=== PATIENT | female | born 1985 | race Caucasian/White ===

== ENCOUNTER 2020-02-03 10:44 | Emergency (ER) | payer OTHER, SELFPAY ==
[2020-02-03 10:54] VITALS: BP 148/90; PULSE 112; RESP 18; TEMP 36.9; O2SAT 98; BMI 27.8
--- NOTE | 2020-02-03 11:18 | ED_ITS ---
HPI - Chest Pain General Chief Complaint: Chest Pain Stated Complaint: MULTIPLE COMPLAINTS Time Seen by Provider: 02/03/20 11:18 Source: patient Mode of arrival: ambulatory Limitations: no limitations History of Present Illness MD complaint: chest pain and other (elevated heart rate and left arm tingling) Pertinent past history: other (hyperthyroidism) Onset (ago): day(s) (2) Timing of current episode: constant Onset: during rest Pain location: right chest Pain radiation: left arm Severity: moderate Quality: aching Relieving factors: nothing Exacerbating factors: nothing Context: other (hx of hyperthyroidism but not on medications yet) Associated symptoms: dyspnea and palpitations Treatment prior to arrival: none Risk Factors Coronary artery disease risk factors: none Thoracic aortic dissection risk factors: none Related Data Previous Rx's Medication Instructions Recorded propranolol 10 mg PO BID #30 tab 02/03/20 Allergies Allergy/AdvReac Type Severity Reaction Status Date / Time No Known Allergies Allergy Unverified 01/07/20 15:22 Review of Systems Review of Systems: Constitutional : No Weight loss, No Fever, No Chills ENT/Mouth : No sore throat, No Rhinorrhea Eyes: No Eye Pain, No Swelling Cardiovascular : pos Chest Pain, pos SOB, no Dyspnea on Exertion, No Orthopnea, No Edema, pos Palpitations Respiratory : No Cough, No Sputum Gastrointestinal : noNausea, No Vomiting, No Diarrhea, No abdominal Pain, No Hematochezia, No Melena Genitourinary : No Dysuria, No Urinary Frequency Musculoskeletal : No joint pain, No Myalgias, No Joint Swelling Skin : No Skin Lesions, No rash Neuro : No Weakness, pos tingling LUE, No Dizziness, No Headache Psych : No Anxiety/Panic, No Depression Heme/Lymph: No Bruising, No Lymphadenopathy Endocrine : No Polyuria, No Polydipsia All other systems reviewed and are negative PMFSH Past Medical History Medical History Hyperthyroidism IUD (intrauterine device) in place Social History Social History (Updated 02/03/20 @ 11:26 by Barb Alcantar DO) Alcohol intake: never Smoking Status: Never smoker Smoked in Last 30 Days: No Use of substances other than those prescribed or required for medical reasons: No Advance Directives: No Advance Directives Information Provided: Yes Physical Exam Vital Signs: Vital Signs: Vital Signs Temp Pulse Resp BP Pulse Ox 02/03/20 10:54 98.4 F 112 H 18 148/90 H 98 Body Mass Index 27.8 Appearance: Alert. Oriented X3. No acute distress. Eyes: Pupils equal, round and reactive to light. ENT: Pharynx normal. Neck: Normal inspection. Neck supple. CVS: tachycardic. Pulses normal. Respiratory: No respiratory distress. Breath sounds normal. Abdomen: Soft and nontender. Skin: Skin warm and dry. Normal skin color. Normal skin turgor. Extremities: No lower extremity edema. No calf ttp Neuro: Oriented X 3. No motor deficit. No sensory deficit. 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 throughout pulses intact and symmetric, sensation intact symmetrically to light touch and sharp touch Course Course Course Narrative: negative workup stable for DC at this time, symmetric BPs can be DC to PCP MDM - Chest Pain MDM Narrative Medical decision making narrative: 35 yo female with hyperthyroidism but not on medications yet has scan on Saturday here with elevated HR R sided CP and L arm tingling, no significant ACS risk factors, labs, EKG, troponin x 1, thyroid studies, ddimer dispo per results and findings, possible start of propanolol for symptoms, doubt stroke as her L arm there is 5/5 strength throughout her sensation is intact throughout without any deficits - it is subjective in bong ure. Lab Data Result diagrams: 02/03/20 13:11 02/03/20 13:11 Labs: Lab Results 02/03/20 02/03/20 02/03/20 Range/Units 13:11 13:11 13:11 WBC 13.0 H (4.8-10.8) X10*3/uL RBC 4.94 (4.20-5.50) X10*6/uL Hgb 14.2 (12.0-16.0) g/dl Hct 42.5 (37-47) % MCV 86.0 (80-98) fL MCH 28.7 (27.0-33.0) pg MCHC 33.4 (31.0-35.0) g/dl RDW 12.3 (11.0-16.0) % Plt Count 284 (160-400) X10*3/uL MPV 10.6 (9.4-12.3) fL Immature Gran % (Auto) 0.5 H (0.0-0.4) % Neut % (Auto) 68.6 (45-73) % Lymph % (Auto) 23.8 (20-40) % [place] % (Auto) 5.6 (2-11) % Eos % (Auto) 0.8 (0-4) % Baso % (Auto) 0.7 (0-2) % Lymph # (Auto) 3.1 (1.2-4.9) X10*3/uL [place] # (Auto) 0.7 (0.1-1.2) X10*3/uL Eos # (Auto) 0.1 (0.0-0.4) X10*3/uL Baso # (Auto) 0.1 (0.0-0.2) X10*3/uL Abs Immat Gran (auto) 0.06 H (0.00-0.03) X10*3/uL Absolute Neuts (auto) 8.9 H (2.0-8.3) X10*3/uL Absolute Nucleated RBC 0.000 (0.0-0.012) X10*3/uL Nucleated RBC % (auto) 0.0 (0.0-0.2) /100WBC D-Dimer NG/ML Sodium 139 (135-145) mmol/L Potassium 4.1 (3.3-5.1) mmol/l Chloride 104 (96-108) mmol/L Carbon Dioxide 27 (22-29) mmol/L Anion Gap 12 (12-20) BUN 13 (9-16) mg/dL Creatinine 0.72 (0.5-1.4) mg/dL Estim Creat Clear Calc 105.1 Estimated GFR > 60 Random Glucose 81 (60-115) mg/dL Calcium 9.3 (8.4-10.2) mg/dL Magnesium 1.8 (1.6-2.6) mg/dL Total Bilirubin 0.8 (0.0-1.0) mg/dL Direct Bilirubin 0.3 (0.0-0.5) mg/dL AST 17 (5-31) U/L ALT 22 (0-31) U/L Alkaline Phosphatase 66 (39-117) U/L Troponin I High Sens (<3.5-17.0) ng/L Total Protein 7.6 (6.5-8.0) g/dL Albumin 4.9 (3.5-5.0) g/dL TSH 0.24 L (0.32-4.0) mIU/mL Free T4 (0.71-1.85) ng/dL Urine Color Urine Appearance Urine pH (5.0-8.0) Ur Specific [place] (1.005-1.025) Urine Protein (NEG-TRACE) MG/DL Urine Glucose (UA) (NEG) MG/DL Urine Ketones (NEG) MG/DL Urine Blood (NEG) Urine Nitrite (NEG) Ur Leukocyte Esterase (NEG) Urine RBC (0) /HPF Urine WBC (0-4) /HPF Ur Squamous Epith Cells /LPF Urine Bacteria /LPF 02/03/20 02/03/20 02/03/20 Range/Units 13:11 13:11 13:12 WBC (4.8-10.8) X10*3/uL RBC (4.20-5.50) X10*6/uL Hgb (12.0-16.0) g/dl Hct (37-47) % MCV (80-98) fL MCH (27.0-33.0) pg MCHC (31.0-35.0) g/dl RDW (11.0-16.0) % Plt Count (160-400) X10*3/uL MPV (9.4-12.3) fL Immature Gran % (Auto) (0.0-0.4) % Neut % (Auto) (45-73) % Lymph % (Auto) (20-40) % [place] % (Auto) (2-11) % Eos % (Auto) (0-4) % Baso % (Auto) (0-2) % Lymph # (Auto) (1.2-4.9) X10*3/uL [place] # (Auto) (0.1-1.2) X10*3/uL Eos # (Auto) (0.0-0.4) X10*3/uL Baso # (Auto) (0.0-0.2) X10*3/uL Abs Immat Gran (auto) (0.00-0.03) X10*3/uL Absolute Neuts (auto) (2.0-8.3) X10*3/uL Absolute Nucleated RBC (0.0-0.012) X10*3/uL Nucleated RBC % (auto) (0.0-0.2) /100WBC D-Dimer < 200 NG/ML Sodium (135-145) mmol/L Potassium (3.3-5.1) mmol/l Chloride (96-108) mmol/L Carbon Dioxide (22-29) mmol/L Anion Gap (12-20) BUN (9-16) mg/dL Creatinine (0.5-1.4) mg/dL Estim Creat Clear Calc Estimated GFR Random Glucose (60-115) mg/dL Calcium (8.4-10.2) mg/dL Magnesium (1.6-2.6) mg/dL Total Bilirubin (0.0-1.0) mg/dL Direct Bilirubin (0.0-0.5) mg/dL AST (5-31) U/L ALT (0-31) U/L Alkaline Phosphatase (39-117) U/L Troponin I High Sens < 3.5 (<3.5-17.0) ng/L Total Protein (6.5-8.0) g/dL Albumin (3.5-5.0) g/dL TSH (0.32-4.0) mIU/mL Free T4 1.17 (0.71-1.85) ng/dL Urine Color Urine Appearance Urine pH (5.0-8.0) Ur Specific [place] (1.005-1.025) Urine Protein (NEG-TRACE) MG/DL Urine Glucose (UA) (NEG) MG/DL Urine Ketones (NEG) MG/DL Urine Blood (NEG) Urine Nitrite (NEG) Ur Leukocyte Esterase (NEG) Urine RBC (0) /HPF Urine WBC (0-4) /HPF Ur Squamous Epith Cells /LPF Urine Bacteria /LPF 02/03/20 Range/Units 13:12 WBC (4.8-10.8) X10*3/uL RBC (4.20-5.50) X10*6/uL Hgb (12.0-16.0) g/dl Hct (37-47) % MCV (80-98) fL MCH (27.0-33.0) pg MCHC (31.0-35.0) g/dl RDW (11.0-16.0) % Plt Count (160-400) X10*3/uL MPV (9.4-12.3) fL Immature Gran % (Auto) (0.0-0.4) % Neut % (Auto) (45-73) % Lymph % (Auto) (20-40) % [place] % (Auto) (2-11) % Eos % (Auto) (0-4) % Baso % (Auto) (0-2) % Lymph # (Auto) (1.2-4.9) X10*3/uL [place] # (Auto) (0.1-1.2) X10*3/uL Eos # (Auto) (0.0-0.4) X10*3/uL Baso # (Auto) (0.0-0.2) X10*3/uL Abs Immat Gran (auto) (0.00-0.03) X10*3/uL Absolute Neuts (auto) (2.0-8.3) X10*3/uL Absolute Nucleated RBC (0.0-0.012) X10*3/uL Nucleated RBC % (auto) (0.0-0.2) /100WBC D-Dimer NG/ML Sodium (135-145) mmol/L Potassium (3.3-5.1) mmol/l Chloride (96-108) mmol/L Carbon Dioxide (22-29) mmol/L Anion Gap (12-20) BUN (9-16) mg/dL Creatinine (0.5-1.4) mg/dL Estim Creat Clear Calc Estimated GFR Random Glucose (60-115) mg/dL Calcium (8.4-10.2) mg/dL Magnesium (1.6-2.6) mg/dL Total Bilirubin (0.0-1.0) mg/dL Direct Bilirubin (0.0-0.5) mg/dL AST (5-31) U/L ALT (0-31) U/L Alkaline Phosphatase (39-117) U/L Troponin I High Sens (<3.5-17.0) ng/L Total Protein (6.5-8.0) g/dL Albumin (3.5-5.0) g/dL TSH (0.32-4.0) mIU/mL Free T4 (0.71-1.85) ng/dL Urine Color YELLOW Urine Appearance CLEAR Urine pH 6.5 (5.0-8.0) Ur Specific [place] <= 1.005 (1.005-1.025) Urine Protein NEG (NEG-TRACE) MG/DL Urine Glucose (UA) NEG (NEG) MG/DL Urine Ketones NEG (NEG) MG/DL Urine Blood NEG (NEG) Urine Nitrite NEG (NEG) Ur Leukocyte Esterase NEG (NEG) Urine RBC 0 (0) /HPF Urine WBC 0 (0-4) /HPF Ur Squamous Epith Cells 1+ /LPF Urine Bacteria NONE /LPF ECG Data ECG #1: Attestation: I personally reviewed and interpreted this ECG as follows: ECG interpretation date: 02/03/20 ECG interpretation time: 12:27 Interpretation: Rate: 92 Rhythm: NSR [place]: left Normal P waves. Normal BRYON. Normal QRS complex. ST T wave : normal qTC: normal prior studies: no acute ischemia The study has been interpreted contemporaneously by me. . Discharge Plan Discharge Clinical Impression: Atypical chest pain, Heart palpitations, Hyperthyroidism Patient Disposition: Home, Self-Care Instructions: Heart Palpitations (ED), Hyperthyroidism (ED) Prescriptions: New propranolol 10 mg tablet 10 mg PO BID Qty: 30 RF: 0 Referrals: Elena Sepulveda NP [Primary Care Provider] - 2 days Stand Alone Forms: Work/School Release Interventions: ED Discharge Assessment Last Done: 02/03/20 15:47 Discharge Date/Time: 02/03/20 15:56
--- NOTE | 2020-02-03 11:19 | ECG_ITS ---
Test Reason : CHEST WALL PAIN Blood Pressure : / mmHG Vent. Rate : 092 BPM Atrial Rate : 092 BPM P-R Int : 164 ms QRS Dur : 080 ms QT Int : 370 ms P-R-T Axes : 048 004 018 degrees QTc Int : 457 ms Normal sinus rhythm with sinus arrhythmia Possible Left atrial enlargement RSR' or QR pattern in V1 suggests right ventricular conduction delay Borderline ECG When compared with ECG of 12-FEB-2018 07:41, Sinus rhythm has replaced Ectopic atrial rhythm Referred By: Barb Alcantar Electronically Signed By:SHIRLENE ROJAS MD
--- NOTE | 2020-02-03 11:19 | XR_ITS ---
EXAMINATION: XR CHEST CLINICAL INFORMATION: Pain COMPARISON: Chest radiographs 02/12/2018 TECHNIQUE: PA view of the chest was obtained. FINDINGS: The lungs are clear. There is no pneumothorax, pleural reaction, airspace consolidation, or effusion. The costophrenic sulci are well-defined. The heart is normal in size. The hilar and mediastinal contours and bony structures are unremarkable. There are bilateral nipple piercings, also present on prior study 2018. IMPRESSION: Unremarkable examination.
[2020-02-03 13:22] LABS: MANUAL DIFF FLAG NO
[2020-02-03 13:25] LABS: Basophils Absolute Auto 0.1 X10*3/uL (0.0-0.2); Basophils Percent Auto 0.7 % (0-2); Eosinophils Absolute Auto 0.1 X10*3/uL (0.0-0.4); Eosinophils Percent Auto 0.8 % (0-4); Hematocrit 42.5 % (37-47); Hemoglobin 14.2 g/dl (12.0-16.0); Imm Gran Abs Auto 0.06 X10*3/uL (0.00-0.03); Imm Gran Pct Auto 0.5 % (0.0-0.4); Lymphocytes Absolute Auto 3.1 X10*3/uL (1.2-4.9); Lymphocytes Percent Auto 23.8 % (20-40); Mean Corpuscular HGB Conc 33.4 g/dl (31.0-35.0); Mean Corpuscular Hemoglobin 28.7 pg (27.0-33.0); Mean Platelet Volume 10.6 fL (9.4-12.3); Monocytes Absolute Auto 0.7 X10*3/uL (0.1-1.2); Monocytes Percent Auto 5.6 % (2-11); Neutrophils Absolute Auto 8.9 X10*3/uL (2.0-8.3); Neutrophils Percent Auto 68.6 % (45-73); Platelet Count 284 X10*3/uL (160-400); Red Blood Count 4.94 X10*6/uL (4.20-5.50); Red Cell Distribution Width 12.3 % (11.0-16.0)
[2020-02-03 13:36] LABS: Glucose Urine UA NEG (NEG); Leukocyte Esterase Urine NEG (NEG); Nitrite Urine NEG (NEG); PH 6.5 (5.0-8.0); Specific Gravity - Urine <= 1.005 (1.005-1.025); Urine Blood NEG (NEG); Urine Ketones NEG (NEG); Urine Protein NEG (NEG-TRACE)
[2020-02-03 13:37] LABS: Appearance Urine CLEAR; Color Urine YELLOW; UACC Culture Trigger NO
[2020-02-03 13:39] LABS: D Dimer < 200 NG/ML
[2020-02-03 13:52] LABS: RBC Urine 0 /HPF (0); Squamous Epithelial Cell Urine 1+ /LPF; WBC Urine 0 /HPF (0-4)
[2020-02-03 14:02] LABS: Troponin-I High Sensitivity < 3.5 ng/L (<3.5-17.0)
[2020-02-03 14:17] LABS: Thyroid Stimulating Hormone 0.24 mIU/mL (0.32-4.0)
[2020-02-03 14:18] LABS: Free T4 (Free Thyroxine) 1.17 ng/dL (0.71-1.85)
[2020-02-03 14:20] LABS: Alanine Aminotransferase 22 U/L (0-31); Albumin Level 4.9 g/dL (3.5-5.0); Alkaline Phosphatase 66 U/L (39-117); Anion Gap 12 (12-20); Aspartate Amino Transferase 17 U/L (5-31); Bilirubin Direct 0.3 mg/dL (0.0-0.5); Bilirubin Total 0.8 mg/dL (0.0-1.0); Blood Urea Nitrogen 13 mg/dL (9-16); Carbon Dioxide 27 mmol/L (22-29); Chloride 104 mmol/L (96-108); Creatinine Clr Calc Pharmacy 105.1; Estimated Glomerular Filt Rate > 60; Glucose Random 81 mg/dL (60-115); Magnesium 1.8 mg/dL (1.6-2.6); Potassium 4.1 mmol/l (3.3-5.1); Sodium 139 mmol/L (135-145); Total Protein 7.6 g/dL (6.5-8.0)
[2020-02-03 14:22] LABS: Calcium 9.3 mg/dL (8.4-10.2)
[2020-02-04 19:17] LABS: Triiodothyronine T3 Total 135 ng/dL (76-181)
== END 2020-02-03 15:56 | disposition home or self-care (01) ==
PROVIDERS: Emergency Provider Emergency Medicine; PCP Nurse Practitioner Family
DX: R00.2 Palpitations (principal); E05.90 Thyrotoxicosis, unspecified without thyrotoxic crisis or storm; Z79.899 Other long term (current) drug therapy
CPT/HCPCS: 36415; 71045; 80048; 80076; 81003; 81015; 83735; 84439; 84443; 84480; 84484; 85025; 85379; 93005; 99283; 99284

== ENCOUNTER 2020-08-15 07:42 | Outpatient (REF) | payer OTHER, SELFPAY ==
[2020-08-15 09:12] LABS: TSH reflex Free T4 1.78 uIU/mL (0.32-4.0)
== END 2020-08-15 07:43 | disposition home or self-care (01) ==
LOC: HO.LAB 07:42
PROVIDERS: PCP Nurse Practitioner Family; Visit Provider Internal Medicine Endocrinology, Diabetes & Metabolism
DX: E04.1 Nontoxic single thyroid nodule (principal)
CPT/HCPCS: 36415; 84443

== ENCOUNTER 2020-10-14 15:13 | Outpatient (REF) | payer OTHER, SELFPAY ==
[2020-10-15 02:28] LABS: CT PCR NOT DETECTED (Not Detect.); NG PCR NOT DETECTED (Not Detect.)
[2020-10-18 17:46] LABS: HPV mRNA E6/E7 rflx Not Detected (Not Detected)
== END 2020-10-14 15:14 | disposition home or self-care (01) ==
LOC: HO.LAB 15:13
PROVIDERS: PCP Nurse Practitioner Family; Visit Provider Obstetrics & Gynecology
DX: Z01.419 Encounter for gynecological examination (general) (routine) without abnormal findings (principal); N93.9 Abnormal uterine and vaginal bleeding, unspecified; N92.6 Irregular menstruation, unspecified; R10.2 Pelvic and perineal pain; T83.32XA Displacement of intrauterine contraceptive device, initial encounter; E05.90 Thyrotoxicosis, unspecified without thyrotoxic crisis or storm; D06.9 Carcinoma in situ of cervix, unspecified
CPT/HCPCS: 81003; 81025; 87491; 87591; 87624; 88142

== ENCOUNTER 2020-10-18 12:06 | Outpatient (REF) | payer OTHER, SELFPAY ==
[2020-10-18 13:32] LABS: Hematocrit 41.3 % (37-47); Hemoglobin 13.3 g/dl (12.0-16.0); Mean Corpuscular HGB Conc 32.2 g/dl (31.0-35.0); Mean Corpuscular Hemoglobin 28.7 pg (27.0-33.0); Mean Corpuscular Volume 89.2 fL (80-98); Mean Platelet Volume 11.3 fL (9.4-12.3); Platelet Count 247 X10*3/uL (160-400); Red Blood Count 4.63 X10*6/uL (4.20-5.50); Red Cell Distribution Width 12.9 % (11.0-16.0); White Blood Count 9.6 X10*3/uL (4.8-10.8)
[2020-10-18 14:03] LABS: HCG Quantitative < 2 mIU/mL; TSH reflex Free T4 1.72 uIU/mL (0.32-4.0)
== END 2020-10-18 12:07 | disposition home or self-care (01) ==
LOC: HO.LAB 12:06
PROVIDERS: PCP Nurse Practitioner Family; Visit Provider Obstetrics & Gynecology
DX: N93.9 Abnormal uterine and vaginal bleeding, unspecified (principal)
CPT/HCPCS: 36415; 84443; 84702; 85027

== ENCOUNTER 2020-10-27 08:39 | Outpatient (REF) | payer OTHER, SELFPAY | END 2020-10-27 08:40 | disposition home or self-care (01) | LOC: HO.LNP 08:39 | PROVIDERS: PCP Nurse Practitioner Family; Visit Provider Obstetrics & Gynecology | DX: N92.1 Excessive and frequent menstruation with irregular cycle (principal) | CPT/HCPCS: 58100 ==

== ENCOUNTER 2020-10-31 12:08 | Outpatient (REF) | payer OTHER, SELFPAY | END 2020-10-31 12:09 | disposition home or self-care (01) | LOC: HO.LAB 12:08 | PROVIDERS: Visit Provider Obstetrics & Gynecology | DX: N92.1 Excessive and frequent menstruation with irregular cycle (principal) | CPT/HCPCS: 88305 ==

== ENCOUNTER 2020-11-07 12:38 | Outpatient (REF) | payer OTHER, SELFPAY ==
--- NOTE | ~2020-11-07 | US_ITS ---
EXAMINATION: PELVIC ULTRASOUND CLINICAL INFORMATION: Abnormal bleeding COMPARISON: Previous pelvic ultrasound July 2017 TECHNIQUE: Transabdominal and transvaginal pelvic ultrasound was performed. Transvaginal exam was performed for better visualization of the uterus and ovaries. FINDINGS: The uterus is anteverted and measures 9.2 x 3.3 x 4.6 cm in dimension. No focal uterine lesion is seen. Endometrial thickness is 0.3 cm. There is an IUD in the uterus in satisfactory position. There are nabothian cysts in the cervix. The right ovary is enlarged and measures 5.2 x 3.3 x 4.6 cm. There is a 4.7 x 2.8 x 4.2 cm right ovarian cyst. The left ovary measures 3.3 x 1.8 x 2.9 cm. There is a 2.4 x 1.3 x 2 cm left ovarian cyst. There is no fluid in the pelvis. US/US pelvic and transvaginal IMPRESSION: Normal thickness endometrium. IUD in the uterus in satisfactory position. Enlarged right ovary and 4.7 x 2.8 x 4.2 cm right ovarian cyst.
== END 2020-11-07 12:39 | disposition home or self-care (01) ==
LOC: HO.US 12:38
PROVIDERS: PCP Nurse Practitioner Family; Visit Provider Obstetrics & Gynecology
DX: N93.9 Abnormal uterine and vaginal bleeding, unspecified (principal)
CPT/HCPCS: 76830; 76856

== ENCOUNTER 2020-11-10 11:05 | Outpatient (REF) | payer OTHER, SELFPAY | END 2020-11-10 11:06 | disposition home or self-care (01) | LOC: HO.LAB 11:05 | PROVIDERS: PCP Nurse Practitioner Family; Visit Provider Obstetrics & Gynecology | DX: N92.1 Excessive and frequent menstruation with irregular cycle (principal) | CPT/HCPCS: 58100; 88305 ==

== ENCOUNTER → 2020-11-24 14:23 | Outpatient (BNVA) | payer OTHER, SELFPAY | PROVIDERS: PCP Nurse Practitioner Family; Visit Provider Obstetrics & Gynecology ==

== ENCOUNTER 2021-01-25 08:44 | Emergency (ER) | payer OTHER, SELFPAY ==
[2021-01-25 09:56] VITALS: BP 133/72; PULSE 64; RESP 18; TEMP 36.3; O2SAT 99; BMI 25.7
--- NOTE | 2021-01-25 10:43 | ED.HA ---
HPI - Headache General Chief Complaint: Headache Stated Complaint: headache, ear issue Time Seen by Provider: 01/25/21 10:31 Source: patient Mode of arrival: ambulatory Limitations: no limitations History of Present Illness HPI Narrative: 36-year-old female presents to the ER for evaluation of bilateral ear pain, sore throat, swollen gland in her left side of her neck. Patient reports going camping about 1 month ago and the day after she got back she had ear infections. She was treated initially with ear drops, and then with oral antibiotics. She went to urgent care twice for this. She completed treatment last week. A few days ago she started having worsening bilateral ear pain and last night started having drainage from both of her ears. No recent swimming. She also started having a migraine. She gets these from time to time and takes ibuprofen with improvement. Enough she is not having any fever, chills, shortness of breath, chest pain. She did have 1 episode of nausea and vomiting this morning associated with her migraine headache. MD elicited complaint: headache and other (Bilateral ear pain) Onset (ago): day(s) Onset description: gradually Location: diffuse Severity: moderate Quality & Timing: aching and throbbing Exacerbating factors: none Relieving factors: NSAIDs Context: occurred at rest Associated symptoms: nausea and vomiting Treatments prior to arrival: ibuprofen Related Data Home Medications Medication Instructions Recorded Confirmed escitalopram oxalate 10 mg tablet 10 mg PO DAILY 10/27/20 (Lexapro) levonorgestrel 20 mcg/24 hours (7 INTRAUTERINE 11/10/20 yrs) 52 mg intrauterine device (Mirena) Previous Rx's Medication Instructions Recorded amoxicillin 875 mg-potassium 1 tab PO BID #20 tab 01/25/21 clavulanate 125 mg tablet (Augmentin) [id number] 1 tab PO Q6H PRN #10 tab 01/25/21 50 mg-325 mg-40 mg tablet ciprofloxacin 0.3 %-dexamethasone 4 drp OTIC (EARS) BID 7 Days #7.5 01/25/21 0.1 % ear drops,suspension ml (Ciprodex) ondansetron 4 mg disintegrating 4 mg PO Q8H PRN #10 tab 01/25/21 tablet Allergies Allergy/AdvReac Type Severity Reaction Status Date / Time No Known Allergies Allergy Verified 10/14/20 15:37 Review of Systems Review of Systems: Constitutional: No Fever, No Chills ENT/Mouth: + sore throat, No Rhinorrhea, No Swallowing Difficulty, +Ear pain, +Ear drainage, No hearing loss Eyes: No Eye Pain, No Swelling, No Redness Cardiovascular: No Chest Pain, No SOB, No Orthopnea, No Edema Respiratory: No Cough, No Sputum Gastrointestinal: + Nausea, + Vomiting, No Diarrhea, No abdominal Pain Musculoskeletal: No joint pain, No Myalgias Skin: No Skin Lesions, No rash Neuro: No Weakness, No Numbness, No Dizziness, + Headache Heme/Lymph: No Bruising, + Lymphadenopathy PMFSH Past Medical History Medical History (Updated 01/25/21 @ 10:53 by VERN Kong) 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 Oriented X3. No acute distress. Eyes: Pupils equal, round and reactive to light. ENT: Pharynx with mild generalized erythema no tonsillar swelling or exudate. Bilateral external auditory canals are swollen with yellowish crusting discharge. Canals are erythematous and tender. The right is worse than the left. Bilateral tympanic membranes are erythematous and bulging. Neck: Normal inspection. Neck supple. 1cm tender lesion on posterior cervical chain consistent with enlarged LN, no erythema or warmth CVS: Normal heart rate and rhythm. Pulses normal. Respiratory: No respiratory distress. Breath sounds normal. Abdomen: Soft and nontender. +BS xSkin: Skin warm and dry. Normal skin color. Normal skin turgor. No rashes. Extremities: No lower extremity edema. Neuro: Oriented X 3. CN II-XII grossly intact Course Course Course Narrative: 36-year-old female presenting to the ER with bilateral ear pain, sore throat, and swollen lymph node. Her clinical presentation and exam are consistent with bilateral otitis media and externa. He most likely had only partial treatment with recurrence. She is afebrile and appears nontoxic. Will plan to treat with both topical and oral antibiotics. She has a primary care doctor that she will follow-up with. We will give a trial of Fioricet and sublingual Zofran for her headache. Suspect as her infections are treated the enlarged lymph node will get better as well as her headaches. Stable for discharge home Critical Care Time Critical Care Time Critical Care Time: No Discharge Plan Discharge Clinical Impression: Migraine Qualifiers: Migraine type: unspecified Status migrainosus presence: without status migrainosus Intractability: not intractable Qualified Code(s): G43.909 - Migraine, unspecified, not intractable, without status migrainosus Otitis externa Qualifiers: Otitis externa type: diffuse Chronicity: acute Laterality: bilateral Qualified Code(s): H60.313 - Diffuse otitis externa, bilateral Otitis media Qualifiers: Otitis media type: suppurative Chronicity: acute Laterality: bilateral Recurrence: not specified as recurrent Spontaneous tympanic membrane rupture: without spontaneous rupture Qualified Code(s): H66.003 - Acute suppurative otitis media without spontaneous rupture of ear drum, bilateral Patient Disposition: Home, Self-Care Instructions: Otitis Externa (ED), Migraine Headache (ED), How to Use Ear Drops (ED), Ear Infection (ED) Additional Instructions: Use the prescribed ear drops as directed. Is important not to get water in her ear. Take the prescribed oral antibiotic as directed for a full 10 days. Take Motrin and Tylenol as needed for pain. Use warm compresses to this 1 lymph node in her neck. This will go away with time and treatment of the infection Follow-up with your doctor in 1 week. If you have worsening symptoms see your doctor sooner or come back to the ER for further evaluation Prescriptions: New ondansetron 4 mg tablet,disintegrating 4 mg PO Q8H PRN (Reason: nausea and vomiting) Qty: 10 RF: 0 amoxicillin-pot clavulanate [Augmentin] 875-125 mg tablet 1 tab PO BID Qty: 20 RF: 0 ciprofloxacin-dexamethasone [Ciprodex] 0.3-0.1 % drops,suspension 4 drp otic (ears) BID 7 Days Qty: 7.5 RF: 0 [id number]-[id number]-jjin 50-325-40 mg tablet 1 tab PO Q6H PRN (Reason: pain) Qty: 10 RF: 0 No Action escitalopram oxalate [Lexapro] 10 mg tablet 10 mg PO DAILY RF: 0 Mirena 20 mcg/24 hours (6 yrs) 52 mg intrauterine device intrauterine RF: 0 Stand Alone Forms: Work/School Release Interventions: ED Discharge Assessment Last Done: 01/25/21 11:00 Discharge Date/Time: 01/25/21 11:00
== END 2021-01-25 11:00 | disposition home or self-care (01) ==
PROVIDERS: Emergency Provider Emergency Medicine; PCP Nurse Practitioner Family
DX: H60.313 Diffuse otitis externa, bilateral (principal); H66.003 Acute suppurative otitis media without spontaneous rupture of ear drum, bilateral; G43.909 Migraine, unspecified, not intractable, without status migrainosus
CPT/HCPCS: 99283

== ENCOUNTER 2021-03-07 17:20 | Outpatient (REF) | payer OTHER, SELFPAY ==
[2021-03-07 17:31] LABS: MANUAL DIFF FLAG NO
[2021-03-07 17:37] LABS: Basophils Absolute Auto 0.1 X10*3/uL (0.0-0.2); Basophils Percent Auto 0.4 % (0-2); Eosinophils Absolute Auto 0.2 X10*3/uL (0.0-0.4); Hematocrit 42.7 % (37.0-47.0); Hemoglobin 14.4 g/dl (12.0-16.0); Imm Gran Abs Auto 0.09 X10*3/uL (0.00-0.03); Imm Gran Pct Auto 0.5 % (0.0-0.4); Mean Corpuscular HGB Conc 33.7 g/dl (31.0-35.0); Mean Corpuscular Hemoglobin 29.2 pg (27.0-33.0); Mean Corpuscular Volume 86.6 fL (80.0-98.0); Mean Platelet Volume 10.6 fL (9.4-12.3); Monocytes Absolute Auto 0.9 X10*3/uL (0.1-1.2); Monocytes Percent Auto 5.2 % (2-11); Neutrophils Absolute Auto 11.4 x10*3/uL (2.0-8.3); Neutrophils Percent Auto 68.9 % (45-73); Platelet Count 265 X10*3/uL (160-400); Red Blood Count 4.93 X10*6/uL (4.20-5.50); Red Cell Distribution Width 12.3 % (11.0-16.0); White Blood Count 16.6 X10*3/uL (4.8-10.8)
[2021-03-07 17:50] LABS: Estimated Average Glucose 88 mg/dL; Hemoglobin A1c % 4.7 %
[2021-03-07 18:06] LABS: Alanine Aminotransferase 29 U/L (0-31); Albumin Level 4.5 g/dL (3.5-5.0); Alkaline Phosphatase 61 U/L (39-117); Anion Gap 11 (12-20); Aspartate Amino Transferase 18 U/L (5-31); Bilirubin Total 0.6 mg/dL (0.0-1.0); Blood Urea Nitrogen 15 mg/dL (9-16); Calcium 9.1 mg/dL (8.4-10.2); Carbon Dioxide 25 mmol/L (22-29); Chloride 104 mmol/L (96-108); Cholesterol 214 mg/dL; Estimated Glomerular Filt Rate > 60; Glucose Random 87 mg/dL (60-115); HDL Cholesterol 49 mg/dL; LDL Cholesterol Calculated 142 mg/dl; Sodium 136 mmol/L (135-145); Total Protein 7.2 g/dL (6.5-8.0); Triglycerides 116 mg/dL
[2021-03-07 18:28] LABS: Free T4 (Free Thyroxine) 0.97 ng/dL (0.71-1.85); Insulin 7 uU/mL (2-29); Thyroid Stimulating Hormone 2.03 uIU/mL (0.32-4.0); Vitamin D 25-OH Total 19.7 ng/mL (>30)
== END 2021-03-07 17:21 | disposition home or self-care (01) ==
LOC: HO.LAB 17:20
PROVIDERS: PCP Registered Nurse; Visit Provider Registered Nurse
DX: R73.01 Impaired fasting glucose (principal); E03.8 Other specified hypothyroidism; E78.2 Mixed hyperlipidemia; E55.9 Vitamin D deficiency, unspecified
CPT/HCPCS: 36415; 80053; 80061; 82306; 83036; 83525; 84439; 84443; 85025

== ENCOUNTER 2021-03-09 17:15 | Outpatient (REF) | payer OTHER, SELFPAY ==
--- NOTE | ~2021-03-09 | XR_ITS ---
EXAMINATION: XR CHEST CLINICAL INFORMATION: Chest pain. COMPARISON: 02/03/20. TECHNIQUE: 2 views of the chest were obtained. FINDINGS: No significant abnormality is noted involving the heart, lungs, mediastinum, bony thorax or soft tissues. XR/XR chest 2V IMPRESSION: Unremarkable examination.
--- NOTE | ~2021-03-09 | XR_ITS ---
EXAMINATION: XR SINUSES CLINICAL INFORMATION: Sinusitis. Lymphadenopathy. COMPARISON: None TECHNIQUE: 3 views of the sinuses were obtained. FINDINGS: The paranasal sinuses are well developed and clear. No bony abnormality is demonstrated. XR/XR sinus min 3V IMPRESSION: Unremarkable examination.
== END 2021-03-09 17:16 | disposition home or self-care (01) ==
LOC: HO.XRAY 17:15
PROVIDERS: PCP Registered Nurse; Visit Provider Registered Nurse
DX: H60.399 Other infective otitis externa, unspecified ear (principal); L04.0 Acute lymphadenitis of face, head and neck; J01.00 Acute maxillary sinusitis, unspecified
CPT/HCPCS: 70220; 71046

== ENCOUNTER 2021-03-20 19:43 | Inpatient (IN) | payer OTHER, SELFPAY ==
--- NOTE | ~2021-03-20 | CT_ITS ---
EXAMINATION: CT SOFT TISSUE NECK WITH CONTRAST CLINICAL INFORMATION: Bilateral ear infections. COMPARISON: None TECHNIQUE: Following the intravenous administration of 65 mL of Omnipaque 350 intravenous contrast, helical imaging was performed in the axial plane with generation of coronal and sagittal reformatted images. This CT examination was performed using dose optimization techniques as appropriate, variously including the following: *Automated exposure control *Adjustment of mA and/or kV according to patient size (this includes techniques or standardized protocols for targeted exams where dose is matched to indication/reason for exam; i.e. extremities or head) *Use of iterative reconstruction technique DLP: 680 mGy-cm FINDINGS: Bilateral external auditory canal concentric mural thickening is present. No gross inflammatory changes are noted in continuity with these regions in the adjacent periarticular soft tissues. No associated subcutaneous emphysema or adjacent osseous erosions. No mastoid effusions. No middle ear cavity fluid collections. No cervical lymphadenopathy. The right lobe of the thyroid is nearly completely absent and surgical clips are present in the region of the right thyroid bed. The larynx and pharynx are normal in appearance. The visualized lung apices are clear. The submandibular, parotid and visualized sublingual glands are normal in appearance. The orbits and globes are normal in appearance. Within the incidentally visualized intracranial structures, no abnormalities are identified. The visualized cervical carotid and vertebral artery systems are normal in appearance. Minimal multilevel anterior endplate osteophytosis of the thoracic spine. CT/CT soft tissue neck w con IMPRESSION: -Bilateral external auditory canal concentric mural thickening and hyperemia. Findings are suspicious for bilateral otitis externa. No specific evidence of necrotizing otitis externa though CT may be insensitive in the early detection of necrotizing otitis externa (malignant otitis external). The middle ear cavities are clear. No mastoid effusions. -Status post right lobe partial thyroidectomy.
--- NOTE | ~2021-03-20 | XR_ITS ---
EXAMINATION: XR CHEST CLINICAL INFORMATION: Cough. COMPARISON: Chest radiograph 03/09/2021. TECHNIQUE: Frontal view of the chest was obtained. FINDINGS: Normal appearance of the cardiomediastinal structures. No effusions or pneumothoraces. The lungs are clear. Normal pattern of pulmonary vasculature. XR/XR chest 1V IMPRESSION: Normal chest. Lungs clear.
[2021-03-20 20:17] VITALS: BP 124/78; PULSE 89; RESP 17; TEMP 36.8; O2SAT 97; BMI 27.8
--- NOTE | 2021-03-20 23:55 | ED.GENADULT ---
HPI - General Adult General Chief complaint: General Medical Stated complaint: Earache Source: patient Mode of arrival: ambulatory Limitations: no limitations History of Present Illness HPI narrative: 36-year-old female presents with recurrent bilateral otitis externa and media. Was referred to the emergency department by her primary care physician. Has had multiple courses of antibiotics with poor effect. Onset (ago): week(s) Radiation: neck Severity: severe Severity scale (1-10): 10 Quality: aching Pain Consistency: constant Relieving factors: none Exacerbating factors: eating and movement Associated symptoms: fever/chills and headaches Treatments prior to arrival: NSAID and other (Antibiotics) Related Data Home Medications Medication Instructions Recorded Confirmed escitalopram oxalate 10 mg tablet 10 mg PO DAILY 10/27/20 (Lexapro) levonorgestrel 20 mcg/24 hours (7 INTRAUTERINE 11/10/20 yrs) 52 mg intrauterine device (Mirena) Previous Rx's Medication Instructions Recorded amoxicillin 875 mg-potassium 1 tab PO BID #20 tab 01/25/21 clavulanate 125 mg tablet (Augmentin) fvxzucnuyc-jvubdsxuxlmlj-kztgullm 1 tab PO Q6H PRN #10 tab 01/25/21 50 mg-325 mg-40 mg tablet ciprofloxacin 0.3 %-dexamethasone 4 drp OTIC (EARS) BID 7 Days #7.5 01/25/21 0.1 % ear drops,suspension ml (Ciprodex) ondansetron 4 mg disintegrating 4 mg PO Q8H PRN #10 tab 01/25/21 tablet Allergies Allergy/AdvReac Type Severity Reaction Status Date / Time No Known Allergies Allergy Verified 03/20/21 20:16 Review of Systems Review of Systems: Constitutional: No Fever, No Chills, positive headache ENT/Mouth: Positive bilateral ear pain, positive neck pain, positive neck swelling, No sore throat, No Rhinorrhea Eyes: No Eye Pain, No Swelling, No Redness Cardiovascular: No Chest Pain, No SOB Respiratory: No Cough, No Sputum Gastrointestinal: No Nausea, No Vomiting, No Diarrhea, No abdominal Pain Genitourinary: No Dysuria, No Hematuria Musculoskeletal: No joint pain, No Myalgias, No Joint Swelling Skin: No Skin Lesions, No rash Neuro: No Weakness, No Numbness, No Loss of Consciousness, No Dizziness, No Headache Psych: No Anxiety, No Depression, No SI/HI/AH/VH Heme/Lymph: No Bruising, No Bleeding,No Lymphadenopathy Endocrine: No Polyuria, No Polydipsia Yes all other systems are reviewed and are negative [facility] Past Medical History Attestation statement: The following information was validated with the patient. Source: old records reviewed Medical History GABINO III (cervical intraepithelial neoplasia grade III) with severe dysplasia Hyperthyroidism IUD (intrauterine device) in place Migraines Social History Social History Alcohol intake: never Patient Tobacco Use Status: Never used Tobacco Advance Directives: No Advance Directives Information Provided: No Patient : No Physical Exam Vital Signs: Vital Signs: Last Vital Signs Temp 98.3 F 03/20/21 20:17 Pulse 89 03/20/21 20:17 Resp 17 03/20/21 20:17 BP 124/78 03/20/21 20:17 Pulse Ox 97 03/20/21 20:17 Body Mass Index 27.8 Appearance: Alert. Oriented X3. Moderate distress. Eyes: Pupils equal, round and reactive to light. ENT: Bilateral otitis externa with purulent drainage, canals completely occluded tympanic membranes not visualized, mastoid tenderness bilaterally, Neck: Normal inspection. Neck supple. anterior posterior tonsillar, submandibular and preauricular lymphadenopathy noted bilaterally. Full range of motion. No nuchal rigidity. No vertebral tenderness or step-offs. CVS: Normal heart rate and rhythm. Pulses normal. Respiratory: No respiratory distress. Breath sounds normal. Abdomen: Soft and nontender. Skin: Skin warm and dry. Normal skin color. Normal skin turgor. Extremities: Moves all extremities against resistance. Gait well-balanced well coordinated. Neuro: No motor deficit. No sensory deficit. Cranial nerves 2-12 intact. Course Course Course Narrative: 36-year-old female presents with bilateral otitis externa. Was on amoxicillin, Augmentin, then Levaquin 750 mg which started on 03/13. Patient stated that symptoms have gotten worse, she now has a headache, noted that all of her lymph nodes are swollen and has increased pain. Patient was referred to ENT, was unable to get an appointment in a timely manner. Patient has been experiencing recurrent ear infection for several weeks. researching up-to-date as well as [facility], Zosyn selected to cover for suspected malignant external otitis versus mastoiditis and cover for Pseudomonas. CT scan of soft tissue neck with contrast pending. CBC, Chem 7, lactic, cultures, and ear culture pending. 1:47 a.[address]. sign out to Dr. Darling. Medical Decision Making Lab Data Result diagrams: 03/21/21 01:28 03/21/21 01:28 Labs: Lab Results 03/21/21 03/21/21 Range/Units 01:28 01:28 WBC 16.0 H (4.8-10.8) X10*3/uL RBC 5.01 (4.20-5.50) X10*6/uL Hgb 14.8 (12.0-16.0) g/dl Hct 44.4 (37.0-47.0) % MCV 88.6 (80.0-98.0) fL MCH 29.5 (27.0-33.0) pg MCHC 33.3 (31.0-35.0) g/dl RDW 12.5 (11.0-16.0) % Plt Count 291 (160-400) X10*3/uL MPV 10.1 (9.4-12.3) fL Immature Gran % (Auto) 1.1 H (0.0-0.4) % Neut % (Auto) 69.4 (45-73) % Lymph % (Auto) 21.0 (20-40) % [place] % (Auto) 6.3 (2-11) % Eos % (Auto) 1.8 (0-4) % Baso % (Auto) 0.4 (0-2) % Lymph # (Auto) 3.4 (1.2-4.9) X10*3/uL [place] # (Auto) 1.0 (0.1-1.2) X10*3/uL Eos # (Auto) 0.3 (0.0-0.4) X10*3/uL Baso # (Auto) 0.1 (0.0-0.2) X10*3/uL Abs Immat Gran (auto) 0.17 H (0.00-0.03) X10*3/uL Absolute Neuts (auto) 11.1 H (2.0-8.3) x10*3/uL Absolute Nucleated RBC 0.000 (0.0-0.012) X10*3/uL Nucleated RBC % (auto) 0.0 (0.0-0.2) /100WBC C-Reactive Protein Cancelled Imaging Data Chest x-ray: Attestation: I personally reviewed and interpreted this imaging study as follows: Radiologist's impression: EXAMINATION: XR CHEST CLINICAL INFORMATION: Cough. COMPARISON: Chest radiograph 03/09/2021. TECHNIQUE: Frontal view of the chest was obtained. FINDINGS: Normal appearance of the cardiomediastinal structures. No effusions or pneumothoraces. The lungs are clear. Normal pattern of pulmonary vasculature. XR/XR chest 1V IMPRESSION: Normal chest. Lungs clear. Discharge Plan Discharge Clinical Impression: Otitis externa Prescriptions: No Action ondansetron 4 mg tablet,disintegrating 4 mg PO Q8H PRN (Reason: nausea and vomiting) Qty: 10 RF: 0 amoxicillin-pot clavulanate [Augmentin] 875-125 mg tablet 1 tab PO BID Qty: 20 RF: 0 ciprofloxacin-dexamethasone [Ciprodex] 0.3-0.1 % drops,suspension 4 drp otic (ears) BID 7 Days Qty: 7.5 RF: 0 iswkqhwesp-xxdsikdshbceh-aywf 50-325-40 mg tablet 1 tab PO Q6H PRN (Reason: pain) Qty: 10 RF: 0 escitalopram oxalate [Lexapro] 10 mg tablet 10 mg PO DAILY RF: 0 Mirena 20 mcg/24 hours (6 yrs) 52 mg intrauterine device intrauterine RF: 0
[2021-03-21] VITALS (7 sets, daily range): BP systolic 100–135; BP diastolic 58–95; PULSE 60–89; RESP 16–18; TEMP 36.4–36.7; O2SAT 97–99
[2021-03-21] MEDS: ondansetron HCL 4 MG/2 ML VIAL IVPUSH (01:17)
[2021-03-21] MEDS: Ketorolac Tromethamine 15 MG/ML VIAL 30 MG IVPUSH (01:17)
[2021-03-21] MEDS: 0.9 % Sodium Chloride 1,000 ML 999 ML IVCONT ×2 (01:18→02:59)
[2021-03-21 01:38] LABS: MANUAL DIFF FLAG NO
[2021-03-21 01:41] LABS: Basophils Absolute Auto 0.1 X10*3/uL (0.0-0.2); Basophils Percent Auto 0.4 % (0-2); Eosinophils Absolute Auto 0.3 X10*3/uL (0.0-0.4); Eosinophils Percent Auto 1.8 % (0-4); Hematocrit 44.4 % (37.0-47.0); Hemoglobin 14.8 g/dl (12.0-16.0); Imm Gran Abs Auto 0.17 X10*3/uL (0.00-0.03); Imm Gran Pct Auto 1.1 % (0.0-0.4); Lymphocytes Absolute Auto 3.4 X10*3/uL (1.2-4.9); Mean Corpuscular HGB Conc 33.3 g/dl (31.0-35.0); Mean Corpuscular Hemoglobin 29.5 pg (27.0-33.0); Mean Corpuscular Volume 88.6 fL (80.0-98.0); Mean Platelet Volume 10.1 fL (9.4-12.3); Monocytes Percent Auto 6.3 % (2-11); Neutrophils Absolute Auto 11.1 x10*3/uL (2.0-8.3); Neutrophils Percent Auto 69.4 % (45-73); Platelet Count 291 X10*3/uL (160-400); Red Blood Count 5.01 X10*6/uL (4.20-5.50); Red Cell Distribution Width 12.5 % (11.0-16.0)
[2021-03-21] MEDS: Piperacillin Sodium/Tazobactam 3.375 GM in 0.9 % Sodium Chloride 50 ML IV ×4 (01:47→20:29)
[2021-03-21 01:50] LABS: Lactic Acid 1.1 mmol/L (0.5-2.0)
[2021-03-21] MEDS: Morphine Sulfate 4 MG/ML CARTRIDGE IVPUSH ×2 (02:08→14:59)
[2021-03-21 02:13] LABS: Erythrocyte Sedimentation Rate 7 MM/HR (0-20)
[2021-03-21 02:36] LABS: COVID-19 Test Negative (Negative); IDNOW Serial# 9DD0AD1C
[2021-03-21 02:43] LABS: Anion Gap 15 (12-20); Blood Urea Nitrogen 10 mg/dL (9-16); Calcium 8.8 mg/dL (8.4-10.2); Carbon Dioxide 23 mmol/L (22-29); Chloride 107 mmol/L (96-108); Creatinine Clr Calc Pharmacy 115.3; Estimated Glomerular Filt Rate > 60; Glucose Random 99 mg/dL (60-115); Sodium 141 mmol/L (135-145)
[2021-03-21] MEDS: iohexoL 350 MG/ML 100 ML INFUS..BTL 65 ML IV (03:25)
--- NOTE | 2021-03-21 06:21 | PC.NURSE ---
Med rec completed with PT at bed side. PT stated that she was taking escitalopram at home but PCP advised her to pause med because of concurrent prescription for prednisone.
--- NOTE | 2021-03-21 06:51 | P.HPHOSP_ITS ---
History of Present Illness Date of Service: 03/21/21 Chief Complaint: bilateral ear pain this is a 36-year-old female with no significant past medical history who presents to the hospital with significant pain in the bilateral ears as well as persistent Infection For the past 3 months. Patient reports that she has been on various antibiotics including ear drops as well as p.o. amoxicillin, Augmentin, as well as Levaquin with no improvement. Patient reports that she has significant smelly drainage, now has been getting headaches as a result of her ear pain. she has attempted to make an appointment with ENT but has not been successful due to to their busy schedule. She denies any fever but has chills, her hearing has been affected as well, she has been having a chronic cough for the past 3 months as well as upper respiratory congestion and postnasal drip. On arrival to the ED patient's vitals are significant for a temp of 98.4?, heart rate of 112, blood pressure 148/90, satting 98% on room air Labs are significant for WBC count of 16, otherwise unremarkable she has a CRP of 3.1 and an ESR of 7. soft tissue neck CT showed bilateral external auditory canal concentric moral thickening and hyperemia. Findings are suspicious for bilateral otitis externa. No specific evidence of necrotizing otitis externa. The middle ear cavities are clear and no mastoid effusions noted. Chest x-ray showed normal chest with no acute abnormality COVID negative Review of Systems Review of Systems: Yes all other systems are reviewed and are negative [facility] Medical History GABINO III (cervical intraepithelial neoplasia grade III) with severe dysplasia Hyperthyroidism IUD (intrauterine device) in place Migraines Family History (Updated 03/21/21 @ 06:58 by Sandra Santo MD) Father Diabetes Brother Diabetes Social History Alcohol intake: never Patient Tobacco Use Status: Never used Tobacco Advance Directives: No Advance Directives Information Provided: No Patient : No Meds Allergies Allergy/AdvReac Type Severity Reaction Status Date / Time No Known Allergies Allergy Verified 03/20/21 20:16 Physical Exam Vital Signs and Narrative: Vital Signs: Last Vital Signs Temp 98.3 F 03/20/21 20:17 Pulse 89 03/21/21 06:05 Resp 16 03/21/21 06:05 BP 111/69 03/21/21 06:05 Pulse Ox 97 03/21/21 06:05 Body Mass Index 27.8 Const: General: cooperative and no acute distress Orientation/consciousness: patient oriented x3 HENMT: Other: both ears have significant drainage, very tender to exam, I am unable to exam completely and thoroughly as patient is very uncomfortable and in a lot of pain rhinorrhea and nasal congestion Eyes: General: appearance normal, both eyes and all related structures Pupils: Equal, round and reactive pupils present Resp: Effort & Inspection: normal respiratory effort Auscultation: clear to auscultation bilaterally Cardio: Rate: regular rate Rhythm: regular rhythm GI: Palpation (GI): Soft to palpation Auscultation: normal bowel sounds Skin: General skin exam: no rashes or lesions noted Neuro: General: patient oriented x3 Cranial nerves: Yes Equal, round and reactive pupils present Cognition (Neuro): normal cognition Extrem: General: Yes normal to inspection and Yes no pedal edema Results Labs CBC and Chem 7: 03/21/21 01:28 03/21/21 02:15 Labs: Laboratory Results - last 24 hr 03/21/21 03/21/21 03/21/21 01:28 01:28 01:28 MCV 88.6 MCH 29.5 MCHC 33.3 RDW 12.5 Plt Count 291 MPV 10.1 Immature Gran % (Auto) 1.1 H Neut % (Auto) 69.4 Lymph % (Auto) 21.0 [place] % (Auto) 6.3 Eos % (Auto) 1.8 Baso % (Auto) 0.4 Lymph # (Auto) 3.4 [place] # (Auto) 1.0 Eos # (Auto) 0.3 Baso # (Auto) 0.1 Abs Immat Gran (auto) 0.17 H Absolute Neuts (auto) 11.1 H Absolute Nucleated RBC 0.000 Nucleated RBC % (auto) 0.0 ESR 7 Anion Gap Estim Creat Clear Calc Estimated GFR Random Glucose Lactic Acid Calcium C-Reactive Protein Cancelled COVID-19 ([facility]) COVID-19 Clin Com 03/21/21 03/21/21 03/21/21 01:28 02:15 02:15 MCV MCH MCHC RDW Plt Count MPV Immature Gran % (Auto) Neut % (Auto) Lymph % (Auto) [place] % (Auto) Eos % (Auto) Baso % (Auto) Lymph # (Auto) [place] # (Auto) Eos # (Auto) Baso # (Auto) Abs Immat Gran (auto) Absolute Neuts (auto) Absolute Nucleated RBC Nucleated RBC % (auto) ESR Anion Gap 15 Estim Creat Clear Calc 115.3 Estimated GFR > 60 Random Glucose 99 Lactic Acid 1.1 Calcium 8.8 C-Reactive Protein 3.10 H COVID-19 ([facility]) Negative COVID-19 Clin Com See Note Imaging Radiologist's Impressions: Impressions Chest X-Ray 03/21/21 00:07 IMPRESSION: Normal chest. Lungs clear. Soft Tissue Neck CT 03/21/21 00:07 IMPRESSION: -Bilateral external auditory canal concentric mural thickening and hyperemia. Findings are suspicious for bilateral otitis externa. No specific evidence of necrotizing otitis externa though CT may be insensitive in the early detection of necrotizing otitis externa (malignant otitis external). The middle ear cavities are clear. No mastoid effusions. -Status post right lobe partial thyroidectomy. Assessment and Plan (1) Otitis externa: Status: Acute 36-year-old female with no significant past medical history who presents to the hospital with a pain found to have otitis externa failed outpatient therapy # otitis externa - failed outpatient therapy - CT neck shows bilateral tightest externa with no specific evidence of necrotizing otitis externa - patient was on multiple oral medication as well as ear drops - will treat with Zosyn to cover Pseudomonas - will most likely need clearing of her ears but at this time patient is in extreme pain to attempt this - pain control DVT prophylaxis: Lovenox Quality Stroke Does the patient have a stroke diagnosis?: No VTE Prior VTE?: No VTE Risk Level:: Medical - moderate - high VTE Device Contraindication: Treatment Not Indicated VTE Drug Contraindication: N/A - Med Ordered
[2021-03-21] MEDS: Acetaminophen 325 MG TABLET 650 MG PO (09:02)
[2021-03-21] MEDS: Enoxaparin Sodium 40 MG/0.4 ML SYRINGE SUBCUT (09:03)
--- NOTE | 2021-03-21 10:26 | MHC.CM.PN ---
Met with patient in regards to discharge planning. 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 Patient lives with her sig other and her children. No services anticipated to be needed because patient is not homebound. PCP verified. Patient denies having a HCP. Information provided. Patient not interested in completing one at this time but requested blank HCP to complete. Blank form provided. Patient received 2 Moderna vaccines. Patient has transportation home when medically stable. Continue to monitor for d/c needs.
--- NOTE | 2021-03-21 10:39 | PHA.MEDREC ---
Pharmacy Consult ? Medication Reconciliation Pharmacy has completed the medication reconciliation.
--- NOTE | 2021-03-21 16:48 | PC.NURSE ---
patient in good spirits watching t.v
--- NOTE | 2021-03-21 16:49 | PC.NURSE ---
declining ear drops. states they won't stay in . awaits bed on floor. continues to have joseline ear pain.
--- NOTE | 2021-03-21 19:48 | PC.NURSE ---
PATIENT DID NOT LIKE THE MEAL FROM HERE ,PATIENT BOY FRIEND BROUGHT IN FOOD FOR PATIENT .
[2021-03-21] MEDS: NeoMYCIN/Polymyxin/HC Otic Sol BOTTLE 4 DROP EAR-BOTH (20:30)
--- NOTE | 2021-03-21 22:02 | PC.NURSE ---
pt a&o. no sob or chest pain. pt is resting at this time. no sign of distress. Will continue to monitor.
[2021-03-22] MEDS: Piperacillin Sodium/Tazobactam 3.375 GM in 0.9 % Sodium Chloride 50 ML IV ×2 (03:06→08:18)
[2021-03-22] MEDS: 0.9 % Sodium Chloride Flush 3 ML SYRINGE IVFLUSH (03:08)
[2021-03-22 05:16] VITALS: BP 107/63; PULSE 73; RESP 15; TEMP 37.1; O2SAT 96
[2021-03-22 06:50] LABS: MANUAL DIFF FLAG NO
[2021-03-22 07:04] LABS: Basophils Absolute Auto 0.1 X10*3/uL (0.0-0.2); Basophils Percent Auto 0.6 % (0-2); Eosinophils Absolute Auto 0.3 X10*3/uL (0.0-0.4); Hematocrit 40.7 % (37.0-47.0); Hemoglobin 13.3 g/dl (12.0-16.0); Imm Gran Abs Auto 0.16 X10*3/uL (0.00-0.03); Imm Gran Pct Auto 1.5 % (0.0-0.4); Lymphocytes Absolute Auto 2.9 X10*3/uL (1.2-4.9); Lymphocytes Percent Auto 26.9 % (20-40); Mean Corpuscular HGB Conc 32.7 g/dl (31.0-35.0); Mean Corpuscular Hemoglobin 29.4 pg (27.0-33.0); Mean Corpuscular Volume 89.8 fL (80.0-98.0); Mean Platelet Volume 10.4 fL (9.4-12.3); Monocytes Absolute Auto 0.9 X10*3/uL (0.1-1.2); Monocytes Percent Auto 8.4 % (2-11); Neutrophils Absolute Auto 6.5 x10*3/uL (2.0-8.3); Neutrophils Percent Auto 59.6 % (45-73); Platelet Count 260 X10*3/uL (160-400); Red Blood Count 4.53 X10*6/uL (4.20-5.50); Red Cell Distribution Width 12.5 % (11.0-16.0); White Blood Count 10.8 X10*3/uL (4.8-10.8)
[2021-03-22 07:46] LABS: Blood Urea Nitrogen 13 mg/dL (9-16); Calcium 8.8 mg/dL (8.4-10.2); Creatinine Clr Calc Pharmacy 102.6; Estimated Glomerular Filt Rate > 60; Glucose Fasting 103 mg/dL (60-99)
[2021-03-22 07:57] LABS: Anion Gap 13 (12-20); Carbon Dioxide 25 mmol/L (22-29); Chloride 109 mmol/L (96-108); Potassium 4.5 mmol/L (3.3-5.1); Sodium 142 mmol/L (135-145)
[2021-03-22] MEDS: NeoMYCIN/Polymyxin/HC Otic Sol BOTTLE 4 DROP EAR-BOTH (08:19)
[2021-03-22] MEDS: Enoxaparin Sodium 40 MG/0.4 ML SYRINGE SUBCUT (08:19)
[2021-03-22] MEDS: vancomycin HCL 1,500 MG in 0.9 % Sodium Chloride 500 ML 333.33 MG IV (09:58)
--- NOTE | 2021-03-22 10:09 | P.DS_ITS ---
DS: Providers Provider Date of Service: 03/22/21 Date of admission: 03/21/21 06:50 Primary care physician: Sari Stroud DNP DS: Diagnosis Discharge Diagnosis (1) Otitis externa: Status: Acute (2) Staph aureus infection: Status: Acute DS: Summary Hospital Course Hospital Course: Admission note HPI ?this is a 36-year-old female with no significant past medical history who presents to the hospital with significant pain in the bilateral ears as well as persistent? Infection? For the past 3 months.? Patient reports that she has been on various antibiotics including ear drops as well as p.o. amoxicillin, Augmentin, as well as Levaquin with no improvement.? Patient reports that she has significant smelly drainage, now has been getting headaches as a result of her ear pain. she has attempted to make an appointment with ENT but has not been successful due to to their busy schedule.? She denies any fever but has chills, her hearing has been affected as well, she has been having a chronic cough for the past 3 months as well as upper respiratory congestion and postnasal drip. On arrival to the ED patient's vitals are significant for a temp of 98.4?, heart rate of 112, blood pressure 148/90, satting 98% on room air Labs are significant for WBC count of 16, otherwise unremarkable she has a CRP of 3.1 and an ESR of 7. ?soft tissue neck CT showed bilateral external auditory? canal concentric moral thickening and hyperemia.? Findings are suspicious for bilateral otitis externa.? No specific evidence of necrotizing otitis externa.? The middle ear cavities are clear and no mastoid effusions noted. ?Chest x-ray showed normal chest with no acute abnormality ?COVID negative Hospital course The patient was admitted to the hospital and started on IV Zosyn to cover for possible Pseudomonas infection. Culture was taken from the ear secretions growing Staph aureus pending final sensitivity. The patient was started on IV vancomycin. Plan to discharge home on Bactrim for 10 days and to follow-up as outpatient with ENT with addition of ciprofloxacin is drops. Time Spent with Patient Time attestation: Total time spent providing and/or coordinating discharge services: Discharge coordination time: Greater than 30 minutes Quality: Stroke Does the patient have a stroke diagnosis?: No Physical Exam Vital Signs: Vital Signs: Last Vital Signs Temp 98.7 F 03/22/21 05:16 Pulse 73 03/22/21 05:16 Resp 15 03/22/21 05:16 BP 107/63 03/22/21 05:16 Pulse Ox 96 03/22/21 05:16 Body Mass Index 27.8 Const: Other: Constitutional : Alert, oriented, not in distress Neck : Normal inspection, Supple Ears: Bilateral whitish to yellowish secretions in the EaR with no hemorrhage noticed Cardiovascular : RRR, S1 S2, no lower extremity edema Respiratory : Good bilateral air entry, no crackles, wheezes or rhonchi Gastrointestinal: soft, lax, Normal bowel sounds, Non tender Skin : Warm, Dry Neurological : Alert & oriented x3, No focal deficit DS: Data Data Completed and Pending Labs on day of discharge: Laboratory Results - last 24 hr 03/22/21 03/22/21 06:42 06:42 WBC 10.8 RBC 4.53 Hgb 13.3 Hct 40.7 MCV 89.8 MCH 29.4 MCHC 32.7 RDW 12.5 Plt Count 260 MPV 10.4 Immature Gran % (Auto) 1.5 H Neut % (Auto) 59.6 Lymph % (Auto) 26.9 [place] % (Auto) 8.4 Eos % (Auto) 3.0 Baso % (Auto) 0.6 Lymph # (Auto) 2.9 [place] # (Auto) 0.9 Eos # (Auto) 0.3 Baso # (Auto) 0.1 Abs Immat Gran (auto) 0.16 H Absolute Neuts (auto) 6.5 Absolute Nucleated RBC 0.000 Nucleated RBC % (auto) 0.0 Sodium 142 Potassium 4.5 Chloride 109 H Carbon Dioxide 25 Anion Gap 13 BUN 13 Creatinine 0.73 Estim Creat Clear Calc 102.6 Estimated GFR > 60 Fasting Glucose 103 H Calcium 8.8 Preliminary micro results at discharge 03/21/21 00:30 Routine Culture - Preliminary Ear - Right Staphylococcus aureus 03/21/21 01:28 Blood Culture - Preliminary Blood - Venous No growth after 24 hours. 03/21/21 01:28 Blood Culture - Preliminary Blood - Venous No growth after 24 hours. Discharge Plan Discharge Patient Disposition: Home, Self-Care Discharge Diagnosis: Staphylococci aureus infection Otitis externa Referrals: Sari Stroud DNP [Primary Care Provider] - 1 Week Discharge Medications: New ciprofloxacin-dexamethasone [Ciprodex] 0.3-0.1 % drops,suspension 4 drp otic (ears) BID 7 Days RF: 1 sulfamethoxazole-trimethoprim 400-80 mg tablet 1 tab PO BID Qty: 20 RF: 0 Continued ibuprofen 200 mg Tablet 200 mg PO Q6H PRN (Reason: pain/fever) RF: 0 Discharge Orders: Discharge Order (Routine); Ordered 03/22/21 Ordered By: Vanessa Peterson Diet: advance to usual diet Activity on Discharge: As tolerated Stand Alone Forms: Patient Portal Discharge page Care Plan Goals: Read below Health Concerns: Read below Plan of Treatment: Read below Assessment: You were admitted to the hospital for evaluation of ears infection. Treated with IV antibiotics with fair response. Culture from your ear secretion is growing Staph aureus bacteria. To take Bactrim for 10 days To use is drops as prescribed To follow-up with ENT as outpatient for further evaluation and prevention of recurrence.
[2021-03-22 10:36] VITALS: BP 120/67; PULSE 69; RESP 17; TEMP 36.3; O2SAT 99
[2021-03-22 11:09] VITALS: BP 129/60; PULSE 73; RESP 16; TEMP 36.6; O2SAT 99
== END 2021-03-22 12:02 | disposition home or self-care (01) | DRG 115 ==
LOC: HO.ED 03-21 04:38 → HO.EDOVER 03-21 06:53 → HO.S3 03-22 09:31
PROVIDERS: Nurse Practitioner Family; Admitting Provider Internal Medicine; Emergency Provider Student in an Organized Health Care Education/Training Program; PCP Registered Nurse; Visit Provider Student in an Organized Health Care Education/Training Program
DX: H60.93 Unspecified otitis externa, bilateral (principal); B95.61 Methicillin susceptible Staphylococcus aureus infection as the cause of diseases classified elsewhere; E03.9 Hypothyroidism, unspecified; Z20.822 Contact with and (suspected) exposure to COVID-19; Z97.5 Presence of (intrauterine) contraceptive device; Z79.1 Long term (current) use of non-steroidal anti-inflammatories (NSAID)
CPT/HCPCS: 36415; 70491; 71045; 80048; 83605; 85025; 85652; 86140; 87040; 87071; 87077; 87186; 87205; 87635; 99285; J1650; J1885; J2270; J2405; J2543; J3370; Q9967

== ENCOUNTER 2021-09-19 08:30 | Outpatient (REF) | payer OTHER, SELFPAY ==
[2021-09-20 09:20] LABS: BV Int Neg Control Negative (Negative); BV Int Pos Control Positive (Positive)
[2021-09-20 09:39] LABS: CT PCR NOT DETECTED (Not Detect.); NG PCR NOT DETECTED (Not Detect.)
[2021-09-22 06:25] LABS: HPV mRNA E6/E7 rflx Not Detected (Not Detected)
== END 2021-09-19 08:31 | disposition home or self-care (01) ==
LOC: HO.LAB 08:30
PROVIDERS: Visit Provider Advanced Practice Midwife
DX: Z01.419 Encounter for gynecological examination (general) (routine) without abnormal findings (principal); N92.1 Excessive and frequent menstruation with irregular cycle; Z20.2 Contact with and (suspected) exposure to infections with a predominantly sexual mode of transmission; Z79.899 Other long term (current) drug therapy
CPT/HCPCS: 87480; 87491; 87510; 87591; 87624; 87660; 88142

== ENCOUNTER 2022-10-12 10:58 | Outpatient (REF) | payer OTHER, SELFPAY ==
[2022-10-12 17:23] LABS: CT PCR NOT DETECTED (Not Detect.); NG PCR NOT DETECTED (Not Detect.)
[2022-10-13 13:48] LABS: BV Int Neg Control Negative (Negative); BV Int Pos Control Positive (Positive)
== END 2022-10-12 10:59 | disposition home or self-care (01) ==
LOC: HO.LNP 10:58
PROVIDERS: PCP Registered Nurse; Visit Provider Advanced Practice Midwife
DX: Z01.419 Encounter for gynecological examination (general) (routine) without abnormal findings (principal); T83.32XA Displacement of intrauterine contraceptive device, initial encounter; D06.9 Carcinoma in situ of cervix, unspecified; R10.2 Pelvic and perineal pain; Z20.2 Contact with and (suspected) exposure to infections with a predominantly sexual mode of transmission; Z79.899 Other long term (current) drug therapy
CPT/HCPCS: 0353U; 87480; 87510; 87660

== ENCOUNTER 2022-10-26 11:31 | Outpatient (REF) | payer OTHER, SELFPAY ==
--- NOTE | ~2022-10-26 | US_ITS ---
EXAMINATION: US PELVIS CLINICAL INFORMATION: Pelvic and perineal pain. COMPARISON: 11/07/2020 TECHNIQUE: Ultrasound of the pelvis is performed using both transabdominal and transvaginal transducers along with Doppler. Transvaginal imaging is performed due to inadequate visualization transabdominally. FINDINGS: UTERUS: The uterus is anteverted and measures 7.2 x 3.5 x 4.8 cm. There are some complex nabothian cysts present. The double wall endometrial thickness is 2 mm. The uterus is smooth in contour and has normal myometrial echogenicity. IUD appears to be in normal position without evidence of myometrial penetration. ADNEXA: Both ovaries are visualized. There is normal color flow to the adnexa. There is no ovarian torsion. There is no pelvic ascites or fluid collection. Right ovary measures 2.6 x 1.7 x 1.5 cm. Volume of 3.3 mL. No ovarian abnormality appreciated. Left ovary measures 2.5 x 1.0 x 1.7 cm. Volume of 2.2 mL. No suspicious findings. US/US pelvic and transvaginal IMPRESSION: Intrauterine device appears to be in good position. Complex nabothian cysts.
== END 2022-10-26 11:32 | disposition home or self-care (01) ==
LOC: HO.US 11:31
PROVIDERS: PCP Registered Nurse; Visit Provider Advanced Practice Midwife
DX: R10.2 Pelvic and perineal pain (principal); T83.32XA Displacement of intrauterine contraceptive device, initial encounter
CPT/HCPCS: 76830; 76856

== ENCOUNTER 2022-11-20 14:53 | Outpatient (AMB) | payer OTHER, SELFPAY ==
--- OUTSIDE RECORDS SUMMARY | 2022-11-20 14:54 | XMS_ITS | Patient Health Record ---
Author Name Unknown Organization [employer] Address [address] [place] [id number] Care Team Providers Care Import/Export Analyst Name Role Phone KYLER FAJARDO Primary Care Provider Kemi Cabrera Unavailable [phone] Migration, Provider Unavailable Unavailable ALLERGIES Allergen (clinical drug ingredient) Drug/Non Drug Allergy documented on EMR Reaction Allergy Type Onset Date Status Seasonal (uncoded) cold symptoms Allergy Active REASON FOR REFERRAL No Information MEDICATIONS Medication SIG (Take, Route, Frequency, Duration) Notes Start Date End Date Status Aimovig 70 MG/ML as directed Subcutaneous Active Mirena 20 mcg/24 hours (8 yrs) 52 mg intrauterine device Mirena 20 mcg/24 hours (8 yrs) 52 mg intrauterine device *Reorder from [employer] for eRx and Interaction Alerts* 04/13/2022 Active Ubrelvy 100 MG 1 tablet may take second dose at least 2 hours after first dose as needed Orally Once a day for 90 days Sampled 3 Active Aimovig 70 MG/ML 70 mg/1 ML Subcutaneous once a month for 90 days 07/06/2022 3 Active Nurtec ODT 75 mg disintegrating tablet Take 1 tab orally every other day as directed for migraine prevention Nurtec ODT 75 mg disintegrating tablet *Reorder from [employer] for eRx and Interaction Alerts* 04/13/2022 Not-Taking SOCIAL HISTORY Sex Assigned At : Social History Observation Description Sex Assigned At Female PROBLEMS Problem Type ICD Code Onset Dates Problem Status W/U Status Risk SNOMED Code Notes Problem Nontoxic goiter, unspecified (E04.9) Active confirmed Non-toxic goiter (897139048) Problem Migraine without aura, intractable, with status migrainosus (G43.011) Active confirmed Refractory migraine without aura (192355064) Problem Migraine with aura, intractable, with status migrainosus (G43.111) Active confirmed Refractory migraine with aura (916691630) Problem Migraine without aura and without status migrainosus, not intractable (G43.009) Active confirmed Migraine without aura, not refractory (251936469) VITAL SIGNS Heart Rate 71 /min 08/10/2022 Temperature 97.6 degrees Fahrenheit 08/10/2022 Oximetry 98 % 08/10/2022 Blood pressure diastolic 78 mm Hg 08/10/2022 Height-cm 162.56 cm 08/10/2022 Weight-kg 68.76 kg 08/10/2022 Height 64 in 08/10/2022 Blood pressure systolic 112 mm Hg 08/10/2022 Weight 151.6 lbs 08/10/2022 BMI 26.02 kg/m2 08/10/2022 Encounters Encounter Location Date Provider Diagnosis [address] [id number] 12/28/[address] [id number] 01/18/[address] [id number] 01/25/[address] [id number] 02/22/[address] [id number] 04/13/[address] [id number] [facility] without aura and without status migrainosus, not intractable G43.[address] [id number] [facility] Nontoxic goiter, unspecified E04.9 and Migraine without aura, intractable, with status migrainosus G43.[address] [id number] [facility] with aura, intractable, with status migrainosus G43.[address] [id number] 08/10/2022 KYLER FAJARDO Nontoxic goiter, unspecified E04.9 and Migraine without aura, intractable, with status migrainosus G43.[address] [place], [place] [id number] 04/28/2022 [address] [place] [id number] 04/29/[address] [id number] 06/01/[address] [id number] 06/12/[address] [id number] 06/12/2022 KYLER FAJARDO ASSESSMENTS Encounter Date Diagnosis Assessment Notes Treatment Notes Treatment Clinical Notes 06/05/2022 Migraine without aura and without status migrainosus, not intractable (ICD-10 - G43.009) Appointment booked for Zeenat to come in for exam and to discuss options for her migraines. Total time spent with patient 20 minutes which includes face to face visit, education and coordination of care. 06/08/2022 Nontoxic goiter, unspecified (ICD-10 - E04.9) Due for US, will order 06/08/2022 Migraine without aura, intractable, with status migrainosus (ICD-10 - G43.011) Magnesium Glycinate 400 mg (at bedtime) Riboflavin 200 mg Twice daily CoQ10 100 mg daily Butterbur 100 mg twice daily Given 125 mg of solumedrol IM to left deltoid by Aretha Cortez Migraines are painful, throbbing headaches that often start on one side of the head. They may cause nausea and vomiting and make you sensitive to light, sound, or smell. Without treatment, migraines can last from 4 hours to a few days. Medicines can help prevent migraines or stop them after they have started. Your doctor can help you find which ones work best for you. Follow-up care is a campa part of your treatment and safety. Be sure to make and go to all appointments, and call your doctor if you are having problems. It's also a good idea to know your test results and keep a list of the medicines you take. How can you care for yourself at home? Do not drive if you have taken a prescription pain medicine. Rest in a quiet, dark room until your headache is gone. Close your eyes, and try to relax or go to sleep. Don't watch TV or read. Put a cold, moist cloth or cold pack on the painful area for 10 to 20 minutes at a time. Put a thin cloth between the cold pack and your skin. Use a warm, moist towel or a heating pad set on low to relax tight shoulder and neck muscles. Have someone gently massage your neck and shoulders. Take your medicines exactly as prescribed. Call your doctor if you think you are having a problem with your medicine. You will get more details on the specific medicines your doctor prescribes. Don't take medicine for headache pain too often. Talk to your doctor if you are taking medicine more than 2 days a week to stop a headache. Taking too much pain medicine can lead to more headaches. These are called medicine-overuse headaches 07/06/2022 Migraine with aura, intractable, with status migrainosus (ICD-10 - G43.111) 08/10/2022 Nontoxic goiter, unspecified (ICD-10 - E04.9) reviewed US, will repeat as clinically indicated 08/10/2022 Migraine without aura, intractable, with status migrainosus (ICD-10 - G43.011) Condition is stable and well controlled on current treatment. No changes made, medication(s) refilled as indicated 06/08/2022 Other Total time spen t with patient 51 minutes which includes face to face visit, education and coordination of care. 07/06/2022 Other Total time spen t with patient 20 minutes which includes face to face visit, education and coordination of care. 08/10/2022 Other Total time spen t with patient 36 minutes which includes face to face visit, education and coordination of care. PLAN OF TREATMENT Pending Test Test Name Order Date Ultrasound : Thyroid Sonography B-Scan 0 06/08/2022 Insurance Providers Payer Name Payer Address Payer Phone Subscriber Number Group Number Insured Name Patient Relationship to Insured Coverage Start Date Coverage End Date [facility] [address] [place] , [place] [id number] Zeenat Alfaro Self - patient is the insured 2 MEDICAL (GENERAL) HISTORY Medical History History ICD Code Depression Anxiety Inguinal hernia x 2 (as a child) Migraines Chronic bilateral ear infections Thyroid disease - Partial Thyroidectomy Ulcer GERD Surgical History Surgery Date(Month/Year) Double inguinal hernia surgery @ yr old. Partial Thyroidectomy 2019
[2022-11-20 14:56] VITALS: BP 122/70; BMI 26.6
--- NOTE | 2022-11-20 14:56 | MHC.OFFVIS ---
Intake Vital Signs 11/20/22 14:56 Height 5 ft 4 in Weight 155 lb BMI 26.6 BP 122/70 Blood Pressure Location Lt brachial Position Sitting Intake Visit Reasons: US Follow up/Mirena removal and possible insertion Evaluation Advisor Required: No Accompanied by: Self / Same As Patient Allergies No Known Allergies Allergy (Verified 11/20/22 14:56) Medication List - Last Reconciled 11/20/22 by Sandrita Romero CNM erenumab-aooe (Aimovig Autoinjector) mg subcut ibuprofen 200 mg PO Q6H PRN levonorgestrel (Mirena) intrauterine ubrogepant (Ubrelvy) mg PO HPI US Follow up/Mirena removal and possible insertion HPI Details Patient is here for an attempt at removing her IUD and replacing it. Strings were not visible at the previous visit so an ultrasound had been ordered to verify that it was still present and have had a normal placement.. Patient has had the Mirena IU S for 5 years and the previous 1 had been difficult to remove by 2 providers is as well and was removed by a 3rd with use of a Mary and the strings were trimmed at that insertion visit to 2-3 cm.. The patient had not realize that this would also be to review the ultrasound and she became nervous about that that there was possibly something wrong. [facility] Medical History (Updated 11/20/22 @ 15:32 by Sandrita Romero CNM) GABINO III (cervical intraepithelial neoplasia grade III) with severe dysplasia Hyperthyroidism IUD (intrauterine device) in place Migraines Surgical History History of partial thyroidectomy Family History Father Diabetes Brother Diabetes Paternal Grandmother Breast cancer Ovarian cancer Social History Alcohol intake: never Patient Tobacco Use Status: Never used Tobacco service: No Current occupational status: employed Female Reproductive History Menstrual Age of Menarche: 10 Date of menopause: 10/03/20 Physical Exam Vital Signs: Last Vital Signs BP 122/70 11/20/22 14:56 BMI result Body Mass Index 26.6 External Female Exam: normal external appearance Speculum Exam - Vagina: normal appearance of the vagina and normal vaginal discharge Speculum Exam - Cervix: normal appearance of the cervix Bimanual exam- vagina & uterus: normal bimanual exam, uterine size normal, consistency normal, uterine mobility normal, uterine shape normal and non-tender Bimanual Exam- Adnexa, other: normal adnexae, no masses and No adnexal tenderness Results Reviewed Results Reviewed: Patient: Zeenat Alfaro MR#: [id number] : 1985 Acct:[id number] Age/Sex: 37 / F ADM Date: 10/26/22 Loc: HO.US Attending Dr: Sandrita Romero CNM Ordering Physician: Sandrita Romero CNM Date of Service: 10/26/22 Procedure(s): US pelvic and transvaginal Accession Number(s): [id number] cc: Sandrita Romero CNM~ EXAMINATION:? US PELVIS CLINICAL INFORMATION:? Pelvic and perineal pain. COMPARISON: 11/07/2020 TECHNIQUE: Ultrasound of the pelvis is performed using both transabdominal and transvaginal transducers along with Doppler. Transvaginal imaging is performed due to inadequate visualization transabdominally. FINDINGS: UTERUS: The uterus is anteverted and measures 7.2 x 3.5 x 4.8 cm. There are some complex nabothian cysts present. The double wall endometrial thickness is 2 mm.? The uterus is smooth in contour and has normal myometrial echogenicity. IUD appears to be in normal position without evidence of myometrial penetration. ADNEXA: Both ovaries are visualized. There is normal color flow to the adnexa. There is no ovarian torsion.? There is no pelvic ascites or fluid collection. Right ovary measures 2.6 x 1.7 x 1.5 cm. Volume of 3.3 mL. No ovarian abnormality appreciated. Left ovary measures 2.5 x 1.0 x 1.7 cm. Volume of 2.2 mL. No suspicious findings. US/US pelvic and transvaginal IMPRESSION: Intrauterine device appears to be in good position. ? Complex nabothian cysts. Dictated By: Lewis Martinez MD Signed By: <Electronically signed by Lewis Martinez MD in OV> 11/02/22 1607 DD/ 1202 TD/TT:? Pre Sales Systems Engineer: TRAN Assessment & Plan Assessment & Plan (1) GABINO III (cervical intraepithelial neoplasia grade III) with severe dysplasia: Comment: 2013 status post LEEP cone with negative margin 2014, 2015, 2017 negative co testing; 09/09/21=neg w neg hpv. Code(s): D06.9 - Carcinoma in situ of cervix, unspecified (2) IUD strings lost: Comment: Were not retrievable with previous IUD either IUD removal attempted by both Grace and Prema in 2018. Seen by Dr. Harrison on 09/25/2017 with planned preop consultation for removal, however she was able to remove the Mirena IU S and then replace it with a new 1 by using a [place] grasper. She then trimmed the strings to 3 cm. Code(s): T83.32XA - Displacement of intrauterine contraceptive device, initial encounter (3) Unsuccessful attempt to remove intrauterine device (IUD): Code(s): Z53.8 - Procedure and treatment not carried out for other reasons; Z97.5 - Presence of (intrauterine) contraceptive device Plan I reviewed the patient's normal ultrasound with her and that according to the ultrasound the Mirena IU S was in the proper position and was not imbedded. Bimanual was done 1st. Speculum was placed and cervix was cleansed with Betadine. Cervix appeared completely normal around with no strings visible cervical os was probed with with a Nickeman to attempt retrieval of IUD strings, x2 passes, w no success. Hook was then used to attempt to retrieve strings, however after 2 attempts strings were not retrieved. Patient tolerated attempts well, but I explained to patient that it was not possible to remove the IUD today and she would be rescheduled with Dr. Portillo for another attempt at replacement. And if he was unable to he would make an appropriate plan to replace her Mirena IUD. Coding Level of Care Code Est Pt Level 3 (40479) Diagnoses GABINO III (cervical intraepithelial neoplasia grade III) with severe dysplasia D06.9 IUD strings lost T83.32XA Unsuccessful attempt to remove intrauterine device (IUD) Z53.8; Z97.5
== END 2022-11-20 15:28 | disposition home or self-care (01) ==
LOC: HO.HWSM 14:53
PROVIDERS: PCP Registered Nurse; Visit Provider Advanced Practice Midwife
DX: D06.9 Carcinoma in situ of cervix, unspecified (principal); T83.32XA Displacement of intrauterine contraceptive device, initial encounter; Z53.8 Procedure and treatment not carried out for other reasons
CPT/HCPCS: 99213

== ENCOUNTER → 2022-11-20 14:53 | Outpatient (BNVA) | payer OTHER, SELFPAY | PROVIDERS: PCP Registered Nurse; Visit Provider Advanced Practice Midwife ==

== ENCOUNTER → 2022-11-20 15:10 | Outpatient (BNV) | payer OTHER, SELFPAY | PROVIDERS: Visit Provider Obstetrics & Gynecology | DX: N93.9 Abnormal uterine and vaginal bleeding, unspecified (principal) | CPT/HCPCS: 81025 ==

== ENCOUNTER 2023-01-16 14:30 | Outpatient (AMB) | payer OTHER, SELFPAY ==
[2023-01-16 14:42] VITALS: BP 130/80; BMI 26.3
--- NOTE | 2023-01-16 14:42 | MHC.OFFVIS ---
Intake Vital Signs 01/16/23 14:42 Height 5 ft 4 in Weight 153 lb BMI 26.3 BP 130/80 Intake Visit Reasons: Mirena Replacement/Per Sandrita Stripper Apprentice Required: No Information Interpreted: non-clinical & clinical Operating Room Registered Nurse: Operating Room Registered Nurse Present (Kellen) Allergies No Known Allergies Allergy (Verified 01/16/23 14:43) Is last menstrual period known: No (Mirena) Post menopausal: No Patient : No HPI HPI Comments History of Present Illness Details Presenting for IUD removal and insertion. IUD was not seen on pelvic exam by Codi Land CNM pelvic ultrasound showed the IUD in good position. Date of insertion of Mirena IUD for contraception was on 09/25/2017. The patient does not have any side effects and is interested in keeping it as a method of control. [facility] Medical History Migraines GABINO III (cervical intraepithelial neoplasia grade III) with severe dysplasia IUD (intrauterine device) in place Hyperthyroidism Surgical History History of partial thyroidectomy Family History Father Diabetes Brother Diabetes Paternal Grandmother Breast cancer Ovarian cancer Social History Alcohol intake: never Patient Tobacco Use Status: Never used Tobacco Patient : No service: No Current occupational status: employed Female Reproductive History Menstrual Age of Menarche: 10 control method: progestin IUCD Date of menopause: 10/03/20 Date of last pap smear: 09/20/21 (negative) Review of Systems Const All systems reviewed & are unremarkable except as noted in HPI and below Reports as per HPI and Reports no additional complaints GI Reports no additional complaints Reports no additional complaints Physical Exam Vital Signs: Last Vital Signs BP 130/80 01/16/23 14:42 BMI result Body Mass Index 26.3 Results AMB Test Urine AMB Test Urine Negative Last Edit by SPEEDY Fischer on 01/16/23 14:45 Results Reviewed Results Reviewed: Laboratory Last Values [facility] Clinic Negative 01/16/23 14:44 Assessment & Plan Assessment & Plan (1) Contraceptive management: Code(s): Z30.9 - Encounter for contraceptive management, unspecified Plan: Discussed with the patient that Mirena IUD is FDA approved for 8 years for contraception, it will by 09/25/2025. Since the patient is interested in in having the Mirena IUD as a method of contraception and does not have any side effect from med, recommended to keep it in place the expiration date then will replace it. All questions answered, the patient verbalized understanding and agreed with the plan. Orders: Orders AMB HCG Urine Test Today Z32.02 - Encounter for test, result negative Coding Level of Care Code Est Pt Level 3 (23623) Diagnoses Contraceptive management Z30.9
== END 2023-01-16 15:00 | disposition home or self-care (01) ==
PROVIDERS: PCP Registered Nurse; Visit Provider Obstetrics & Gynecology
DX: Z30.9 Encounter for contraceptive management, unspecified (principal); Z32.02 Encounter for pregnancy test, result negative
CPT/HCPCS: 99213

== ENCOUNTER → 2023-01-16 14:30 | Outpatient (BNVA) | payer OTHER, SELFPAY | PROVIDERS: PCP Registered Nurse; Visit Provider Obstetrics & Gynecology | DX: Z30.09 Encounter for other general counseling and advice on contraception (principal) | CPT/HCPCS: 81025 ==

== ENCOUNTER 2024-01-06 15:12 | Outpatient (AMB) | payer OTHER, SELFPAY ==
[2024-01-06 15:15] VITALS: BP 122/76; BMI 26.4
--- NOTE | 2024-01-06 15:15 | A.OFFVIS_ITS ---
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 No complaints. Last Pap/HPV was negative in 10/11 No previous screening Mammogram [facility] Medical History Migraines GABINO III (cervical intraepithelial neoplasia grade III) with severe dysplasia IUD (intrauterine device) in place Hyperthyroidism Surgical History History of partial thyroidectomy Family History Father Diabetes Brother Diabetes Paternal Grandmother Breast cancer Ovarian cancer Social History Alcohol intake: never Patient Tobacco Use Status: Never used Tobacco service: No Current occupational status: employed Female Reproductive History Menstrual Age of Menarche: 10 Date of menopause: 10/03/20 Total pregnancies: 2 Full term: 2 Number of Living Children: 2 Date of last pap smear: 09/20/21 Review of Systems Const All systems reviewed & are unremarkable except as noted in HPI and below Card Reports as per HPI Resp Reports as per HPI GI Reports as per HPI and Reports no additional complaints Reports as per HPI Physical Exam Vital Signs: Last Vital Signs BP 122/76 01/06/24 15:15 BMI result Body Mass Index 26.4 Const General: cooperative, healthy appearing and comfortable Chest Chest palpation & inspection: normal inspection of the chest and normal palpation of entire chest wall Breast/axilla inspection: normal inspection of the breasts and normal inspection of the axillae Breast/axilla palpation: normal palpation of the breasts, normal palpation of the axillae and no axillary lymphadenopathy Resp Effort & Inspection: normal respiratory effort Auscultation: clear to auscultation bilaterally Percussion: percussion normal Cardio Palpation: normal PMI Rate: regular rate Rhythm: regular rhythm Heart sounds: no murmurs and no rubs Peripheral pulses: Peripheral pulses 2+ throughout GI Inspection: Yes normal to inspection Palpation (GI): Soft to palpation, nontender, no guarding, not rigid and No hepatosplenomegaly present Percussion: Yes normal to percussion Auscultation: normal bowel sounds Rectal Exam - Female: deferred General: Yes bladder normal to palpation External Female Exam: No lesion Speculum Exam - Vagina: normal appearance of the vagina, normal palpation, normal vaginal discharge and not erythematous Speculum Exam - Cervix: normal appearance of the cervix and normal palpation Bimanual exam- vagina & uterus: normal bimanual exam, normal palpation, uterine size normal, bladder normal to palpation, consistency normal and normal palpation Bimanual Exam- Adnexa, other: normal adnexae, no masses and no tenderness Assessment & Plan Assessment & Plan (1) Well woman exam: Comment: History of GABINO 3 in 2013 Code(s): Z01.419 - Encounter for gynecological examination (general) (routine) without abnormal findings Category: Medical Plan: Cotesting not indicated this year. Mammogram ordered. Counseled the patient about the recommended dietary allowance of 1000 mg of Calcium & 600 IU of vitamin D. The patient was instructed to perform monthly self-breast exams and to schedule an annual exam in a year; All questions answered and the patient verbalized understanding. Instructed the patient to schedule annual exam in a year Orders: Orders MM tomosynthesis screening BI Today Z12.31 - Encounter for screening mammogram for malignant neoplasm of breast Coding Level of Care Code Est Pt Level 3 (12530) Est Pt Prev Care 40-64y(40732) Diagnoses Well woman exam Z01.419
== END 2024-01-06 15:42 | disposition home or self-care (01) ==
LOC: HO.HWS 15:12
PROVIDERS: PCP Registered Nurse; Visit Provider Obstetrics & Gynecology
DX: Z01.419 Encounter for gynecological examination (general) (routine) without abnormal findings (principal)
CPT/HCPCS: 99396

== ENCOUNTER → 2024-01-06 15:12 | Outpatient (BNVA) | payer OTHER, SELFPAY | PROVIDERS: PCP Registered Nurse; Visit Provider Obstetrics & Gynecology ==